=== PATIENT | female | born 1960 | race Caucasian/White ===

== ENCOUNTER 2017-06-22 18:55 | Emergency (ER) | payer MEDICARE, OTHER ==
[~2017-06-22] VITALS: Ht 167.6 cm; Wt 115.2 kg
[2017-06-22 19:00] VITALS: BP 130/67
[2017-06-22] MEDS ORDERED: PLEASE ENTER HEIGHT AND WEIGHT MC SCH (19:30)
[2017-06-22] MEDS ORDERED: LIDOCAINE 1%, 20ML INFIL ONE (19:30)
[2017-06-22] MEDS ORDERED: PLEASE ENTER ALLERGIES MC SCH ×2 (19:30)
[2017-06-22] MEDS ORDERED: DIPH,PERTUSS(ACELL),TET VAC/PF 0.5 ML IM-VACC ONE ×2 (19:30→20:25)
[2017-06-22] MEDS ORDERED: LIDOCAINE 1%, 20ML ONE (20:35)
[2017-06-22] MEDS ORDERED: BACITRACIN ZINC OINT 500U/GM, 0.9 GM ONE (20:45)
== END 2017-06-22 21:24 | disposition home or self-care (01) ==
LOC: ED 20:55
DX: S01.511A Laceration without foreign body of lip, initial encounter (principal); S83.91XA Sprain of unspecified site of right knee, initial encounter; S29.012A Strain of muscle and tendon of back wall of thorax, initial encounter; S09.90XA Unspecified injury of head, initial encounter; I10 Essential (primary) hypertension; E06.3 Autoimmune thyroiditis; Z90.49 Acquired absence of other specified parts of digestive tract; Z87.891 Personal history of nicotine dependence; W18.09XA Striking against other object with subsequent fall, initial encounter; Y93.01 Activity, walking, marching and hiking; Y92.098 Other place in other non-institutional residence as the place of occurrence of the external cause; Y99.8 Other external cause status
CPT/HCPCS: 12011; 70450; 70486; 72072; 72125; 90471; 90715

== ENCOUNTER → 2017-07-14 | Outpatient (CLI) | payer OTHER, MEDICARE | END | disposition home or self-care (01) | LOC: CFH 08:12 → EDSTATUS 08:30 | PROVIDERS: ATTEND Family Medicine | DX: M25.561 Pain in right knee (principal) ==

== ENCOUNTER → 2017-09-25 | Outpatient (CLI) | payer MEDICARE ==
[~2017-09-25] MED LIST: REGADENOSON 0.4 MG/5 ML SYRINGE ONE
== END | disposition home or self-care (01) ==
LOC: RAD 08:18
PROVIDERS: ATTEND Internal Medicine Cardiovascular Disease
DX: I25.9 Chronic ischemic heart disease, unspecified (principal); I25.10 Atherosclerotic heart disease of native coronary artery without angina pectoris; E11.9 Type 2 diabetes mellitus without complications
CPT/HCPCS: 78452; 93017; A9502; J2785

== ENCOUNTER 2017-10-27 07:10 | Day surgery (SDC) | payer MEDICARE ==
[2017-10-25 10:23] VITALS: BP 129/80
[2017-10-25 11:05] LABS: BASOPHILS # (AUTO) 0.02 x10^3/uL (0-0.1); BASOPHILS % (AUTO) 0 % (0-1); EOSINOPHILS # (AUTO) 0.24 x10^3/uL (0-0.4); EOSINOPHILS % (AUTO) 5 % (1-7); LYMPHOCYTES # (AUTO) 0.32 x10^3/uL (1-3.4); LYMPHOCYTES % (AUTO) 7 % (22-44); MD NO; MEAN CORPUSCULAR HEMOGLOBIN 27.4 pg (27.0-34.8); MEAN CORPUSCULAR HGB CONC 33.2 g/dL (32.4-35.8); MEAN CORPUSCULAR VOLUME 82.5 fL (80-100); MONOCYTES # (AUTO) 0.51 x10^3/uL (0.2-0.8); MONOCYTES % (AUTO) 11 % (2-9); NEUTROPHILS % (AUTO) 77 % (42-75); PLATELET COUNT 294 x10^3/uL (130-400); RED BLOOD COUNT 4.81 x10^6/uL (3.82-5.3); RED CELL DISTRIBUTION WIDTH 14.4 % (9.6-15.2)
[2017-10-25 11:13] LABS: ANION GAP 8 mmol/L (5-15); CHLORIDE 96 mmol/L (98-107); CREATININE 0.73 mg/dL (0.55-1.02)
[~2017-10-27] VITALS: Ht 166.4 cm; Wt 110.5 kg
[~2017-10-27 07:10] MED LIST changes: -REGADENOSON 0.4 MG/5 ML SYRINGE ONE; +Will bring list DOS
[2017-10-27] MEDS ORDERED: SODIUM CHLORIDE 0.9% 1,000 ML IV ONE (07:11)
[2017-10-27] MEDS ORDERED: CYCL-259 PO (07:36)
[2017-10-27] MEDS ORDERED: HYDR-3237 PO (07:47)
[2017-10-27] MEDS ORDERED: TIZA2CAP PO (07:47)
[2017-10-27] MEDS ORDERED: FLUT16SP INH (07:47)
[2017-10-27] MEDS ORDERED: FOLI-17 PO (07:47)
[2017-10-27] MEDS ORDERED: ASPI-621 PO (07:47)
[2017-10-27] MEDS ORDERED: CHOL2000 PO (07:47)
[2017-10-27] MEDS ORDERED: LEVO137T2 PO (07:47)
[2017-10-27] MEDS ORDERED: DULO20CA17 PO (07:47)
[2017-10-27] MEDS ORDERED: laxaclear PO (07:47)
[2017-10-27] MEDS ORDERED: DIME240C PO (07:47)
[2017-10-27] MEDS ORDERED: OMEP-110 PO (07:47)
[2017-10-27] MEDS ORDERED: METO-93 PO (07:47)
[2017-10-27] MEDS ORDERED: LOSA1TAB22 PO (07:47)
[2017-10-27] MEDS ORDERED: METF10002 PO (07:47)
[2017-10-27] MEDS ORDERED: MIDAZOLAM 1 MG/ML, 5ML ONE (08:12)
[2017-10-27] MEDS ORDERED: TICAGRELOR 90 MG TABLET ONE (08:13)
[2017-10-27] MEDS ORDERED: LIDOCAINE 2%, 20ML ONE (08:13)
[2017-10-27] MEDS ORDERED: BIVALIRUDIN 250 MG ONE (08:13)
[2017-10-27] MEDS ORDERED: FENTANYL PF 100 MCG/2ML ONE (08:13)
[2017-10-27] MEDS ORDERED: HEPARIN 1,000 UNITS/ML, 10ML ONE (08:13)
[2017-10-27] MEDS ORDERED: VERAPAMIL 2.5 MG/ML, 2ML ONE (08:13)
[2017-10-27] MEDS ORDERED: NITROGLYCERIN 5 MG/ML, 10ML ONE (08:13)
[2017-10-27] MEDS ORDERED: DIPHENHYDRAMINE 50 MG/ML, 1ML ONE (08:14)
[2017-10-27] MEDS ORDERED: SODIUM CHLORIDE 0.9% 1,000 ML IV SCH (09:56)
== END 2017-10-27 13:19 ==
LOC: CACL 07:10
PROVIDERS: ATTEND Internal Medicine Cardiovascular Disease
DX: R07.9 Chest pain, unspecified (principal); E11.9 Type 2 diabetes mellitus without complications; E78.00 Pure hypercholesterolemia, unspecified; I10 Essential (primary) hypertension; Z88.1 Allergy status to other antibiotic agents; Z88.8 Allergy status to other drugs, medicaments and biological substances; Z79.82 Long term (current) use of aspirin
CPT/HCPCS: 36415; 80048; 85025; 93458; 99156; C1769; C1894; J1200; J1644; J2250; J3010; J3490; Q9967; J0583